=== PATIENT | male | born 1960 | race Two or more races ===

== ENCOUNTER 2022-01-21 08:45 | Inpatient (IN) | payer OTHER ==
[~2022-01-21] VITALS: Ht 175.3 cm; Wt 94.3 kg
[2022-01-21] MEDS ORDERED: COZAAR50 MG PO (11:07)
[2022-01-21] MEDS ORDERED: MULTI VITAMIN1 EACH PO (11:07)
[2022-01-21] MEDS ORDERED: SAW PALMETTO160 MG PO (11:08)
[2022-01-21] MEDS ORDERED: INDOMETHACIN75 MG PO (11:08)
== END 2022-01-26 18:40 | disposition home or self-care (01) | DRG 280 ==
LOC: ER 08:45 → ICU-2 14:47 → MEDJ 01-24 12:47
PROVIDERS: ADMIT Specialist; ATTEND Specialist
PROC: 4A12X4Z Monitoring of Cardiac Electrical Activity, External Approach (ICD-10-PCS; principal; 2022-01-21)
PROC: BW24YZZ Computerized Tomography (CT Scan) of Chest and Abdomen using Other Contrast (ICD-10-PCS; 2022-01-21)
PROC: B246ZZZ Ultrasonography of Right and Left Heart (ICD-10-PCS; 2022-01-21)
PROC: 3E0F7GC Introduction of Other Therapeutic Substance into Respiratory Tract, Via Natural or Artificial Opening (ICD-10-PCS; 2022-01-21)
PROC: 5A0945A Assistance with Respiratory Ventilation, 24-96 Consecutive Hours, High Flow/Velocity Cannula (ICD-10-PCS; 2022-01-21)
DX: I21.4 Non-ST elevation (NSTEMI) myocardial infarction (principal); I50.23 Acute on chronic systolic (congestive) heart failure; J98.11 Atelectasis; I11.0 Hypertensive heart disease with heart failure; J41.0 Simple chronic bronchitis; R00.0 Tachycardia, unspecified; R09.02 Hypoxemia; E11.9 Type 2 diabetes mellitus without complications; F10.10 Alcohol abuse, uncomplicated; F17.210 Nicotine dependence, cigarettes, uncomplicated; Z20.822 Contact with and (suspected) exposure to COVID-19
CPT/HCPCS: 71275